=== PATIENT | female | born 1995 | race African-American/Black ===

== ENCOUNTER 2025-07-01 05:37 | Emergency (ER) | payer MEDICAID ==
[~2025-07-01] VITALS: Ht 157.5 cm; Wt 67.1 kg
[2025-07-01 07:05] LABS: APPEARANCE,URINE CLEAR (CLEAR); BLOOD, URINE NEGATIVE Ery/uL (NEGATIVE); LEUKOCYTE ESTERASE ,URINE NEGATIVE (NEGATIVE); NITRITE, URINE NEGATIVE (NEGATIVE); UGLUCOSE NEGATIVE (NEGATIVE)
[2025-07-01 07:11] LABS: ADD URINE CULTURE NO; PREGNANCY TEST URINE QUAL POSITIVE (NEGATIVE); SQUAMOUS EPITHELIAL CELL,UR Few /HPF (None Seen)
[2025-07-01 07:14] LABS: PLATELET COUNT (AUTO) 332 K/uL (150-450); RED BLOOD CELL COUNT(AUTO) 4.18 MIL/uL (4.0-5.2); RED CELL DISTRIBUTION WIDTH 13.7 % (11.5-15.0); WHITE BLOOD COUNT (AUTO) 7.5 K/uL (4.3-11.0)
[2025-07-01 07:18] LABS: CALCIUM, SERUM 8.2 mg/dL (8.5-10.1); CREATININE 0.6 mg/dL (0.6-1.3); SODIUM SERUM 140.0 mmol/L (136-145); UREA NITROGEN, BLOOD 7.0 mg/dL (7-18)
[2025-07-01 07:24] LABS: ASPARTATE AMINOTRANSFERASE 14.0 U/L (15-37); TOTAL PROTEIN, SERUM 7.7 g/dL (6.4-8.2)
[2025-07-01 10:42] VITALS: BP 105/70; TEMP 98.6; O2SAT 99
== END 2025-07-01 10:25 | disposition home or self-care (01) ==
LOC: ER 05:46
DX: O20.9 Hemorrhage in early pregnancy, unspecified (principal); I11.9 Hypertensive heart disease without heart failure; R10.20 Pelvic and perineal pain unspecified side; Z86.73 Personal history of transient ischemic attack (TIA), and cerebral infarction without residual deficits; Z88.2 Allergy status to sulfonamides
CPT/HCPCS: 36415; 76856-TC; 80048-TC; 80076-TC; 81001; 83690-TC; 84702-TC; 84703-TC; 85025-TC; 87086-TC